=== PATIENT | female | born 1985 | race Caucasian/White ===

== ENCOUNTER 2024-11-04 07:40 | Inpatient (IN) ==
[2024-11-04 10:07] LABS: Hematocrit 36.6 % (35-45); Hemoglobin 12.6 g/dL (11.5-14.3); Mean Corpuscular Hemoglobin 30.2 pg (27-33); Mean Corpuscular Hgb Conc 34.5 g/dL (31-36); Mean Corpuscular Volume 87.6 fL (80-97); Red Blood Count 4.17 10^6/uL (3.63-4.92); Red Cell Distribution Width 13.4 % (12-17); White Blood Count 9.3 10^3/uL (3.8-11.8)
[2024-11-04] MEDS: Terbutaline INJ 1 MG/ML 1 ml VIAL SUBCUT ONE (10:23)
[2024-11-04 10:34] LABS: Urine Benzodiazepine Screen None Detected (None Detect); Urine Opiates Screen None Detected (None Detect)
[2024-11-04 10:43] LABS: Mean Platelet Volume 9.7 fL (7.5-11.2); Platelet Count 235 10^3/uL (150-450)
[2024-11-04] MEDS ORDERED: Lidocaine 1% VIAL 10 MG/ML 30 ML VIAL INJ PRN (10:49)
[2024-11-04 10:59] LABS: Albumin 3.6 g/dL (3.5-5.7); Albumin/Globulin Ratio 1.3 (1-3); Calcium 8.8 mg/dL (8.6-10.3); Creatinine, Serum 0.74 mg/dL (0.51-0.95); Globulin 2.8 g/dL (2-4); Potassium 4.2 mmol/L (3.5-5.0); Total Bilirubin 0.4 mg/dL (0.2-1.0); Total Protein 6.4 g/dL (6.4-8.9); eGFR CKD-EPI 106.1 (>60)
[2024-11-04] MEDS: Buffered Lidocaine 1% SYRIN 1 ml INTRADERM ONE ×2 (11:32)
[2024-11-04] MEDS: Lactated Ringers 1000 ml BAG 1,000 ML IV ONE ×2 (11:33→16:08)
[2024-11-04] MEDS: Penicillin G Potassium IV 5,000,000 UNITS in NS 0.9% 100 ml BAG 100 ML IVPB ONE (11:45)
[2024-11-04] MEDS: Penicillin G Potassium IV 3,000,000 UNITS in NS 0.9% 100 ml BAG 100 ML IVPB SCH (11:54)
[2024-11-04] MEDS: miSOPROStol 100 mcg TAB PO SCH (12:15)
[2024-11-04] MEDS: Oxytocin in NS 30,000 MILLI.UNIT/500 ML BAG IV SCH (16:08)
[2024-11-04] MEDS: Lactated Ringers 1000 ml BAG 1,000 ML IV SCH ×2 (16:08→22:23)
[2024-11-04] MEDS: ceFAZolin 2 GM PREMIX 2 GM/50 ML BAG IV ONE (16:09)
[2024-11-04] MEDS: Sodium Citrate/Citric Acid LIQ 15 ML UDC PO ONE (16:09)
[2024-11-05] MEDS: OBEPIDURAL (200 ML) 200 ML EPIDURAL SCH (14:50)
[2024-11-05] MEDS ORDERED: Phenylephrine 40 mcg/mL 10mL (400mcg) SYRINGE IV PUSH PRN ×2 (15:22)
[2024-11-05] MEDS: fentaNYL 100 mcg/2 ml 50 MCG/ML VIAL ONE (17:02)
[2024-11-05 17:31] LABS: Urine Appearance Clear; Urine Bilirubin Negative (Negative); Urine Blood 2+ (Negative); Urine Color Light-Yellow; Urine Glucose Negative (Negative); Urine Ketones 2+ (Negative); Urine Nitrite Negative (Negative); Urine Protein Negative (Negative); Urine Urobilinogen Negative (Negative)
[2024-11-05 17:41] LABS: Urine Bacteria Absent /HPF (Absent); Urine Red Blood Cell 1+(3-5/hpf) /HPF (0-Trace); Urine White Blood Cell Trace(0-5/hpf) /HPF (0-Trace)
[2024-11-05 17:44] LABS: Urine Benzodiazepine Screen None Detected (None Detect); Urine Cannabinoids Screen None Detected (None Detect); Urine Opiates Screen None Detected (None Detect)
[2024-11-05] MEDS: ceFOXitin 2 GM IVPREMIX 2 GM/50 ML BAG IVPB ONE (19:56)
[2024-11-05] MEDS: Sodium Citrate/Citric Acid LIQ 15 ML UDC PO PRN (19:57)
[2024-11-05] MEDS ORDERED: Phenylephrine IV 10 MG/ML 1 ml VIAL ONE (20:15)
[2024-11-05] MEDS ORDERED: Dexamethasone IV 4 MG/ML VIAL 1 ml VIAL ONE (20:16)
[2024-11-05] MEDS ORDERED: Oxytocin 10 UNITS/ML 1 ML VIAL ONE (20:16)
[2024-11-05] MEDS ORDERED: Lidocaine 2% w/ EPI 1:200,000 MPF 20 ML SDV VIAL ONE (20:16)
[2024-11-05] MEDS: Azithromycin 500 mg/250 ml NS 500 MG/250 ML BAG IVPB ONE (20:16)
[2024-11-05] MEDS ORDERED: Ondansetron 4 mg VIAL 2 MG/ML 2 ml VIAL ONE (20:16)
[2024-11-05] MEDS ORDERED: fentaNYL 100 mcg/2 ml 50 MCG/ML VIAL ONE (20:21)
[2024-11-05] MEDS ORDERED: Chloroprocaine 3% 20 ml VIAL ONE ×2 (20:50→22:03)
[2024-11-05] MEDS ORDERED: Acetaminophen IV 1 GM/100ML 1,000 MG/100 ML BAG IV ONE (21:11)
[2024-11-05] MEDS ORDERED: Morphine PF AMP (0.5MG/ML) 5 MG/10 ML AMP ONE (21:18)
[2024-11-05] MEDS ORDERED: Glycerin ADULT 2.4 gm SUPP PR PRN (22:16)
[2024-11-05] MEDS ORDERED: Acetaminophen IV 1 GM/100ML 1,000 MG/100 ML BAG IV PRN (22:16)
[2024-11-05] MEDS ORDERED: Witch Hazel PAD JAR TOPICAL PRN (22:16)
[2024-11-05] MEDS ORDERED: Dibucaine 1% OINT 28.35 GM TUBE PR PRN (22:16)
[2024-11-05] MEDS ORDERED: Metoclopramide 5 MG/ML VIAL (10 mg) IV PRN (22:16)
[2024-11-05] MEDS ORDERED: Naloxone 0.4 mg VIAL 0.4 mg/ml 1 ml VIAL IV PUSH PRN (22:16)
[2024-11-05] MEDS ORDERED: Ondansetron 4 mg VIAL 2 MG/ML 2 ml VIAL IV PRN (22:16)
[2024-11-05] MEDS ORDERED: Lactated Ringers 1000 ml BAG 1,000 ML IV SCH (23:00)
[2024-11-06] MEDS: Oxytocin in NS 30,000 MILLI.UNIT/500 ML BAG IV SCH (02:29)
[2024-11-06] MEDS: Lidocaine 1.5% EPI 1:200,000 30 ML SDV ONE (02:51)
[2024-11-06] MEDS: OBEPIDURAL (200 ML) 200 ML EPIDURAL ONE (02:53)
[2024-11-06] MEDS: Lactated Ringers 1000 ml BAG 1,000 ML IV ONE (02:54)
[2024-11-06] MEDS: Phenylephrine 40 mcg/mL 10mL (400mcg) SYRINGE ONE (02:54)
[2024-11-06] MEDS: Lactated Ringers 1000 ml BAG 1,000 ML IV SCH (03:00)
[2024-11-06 07:13] LABS: ABS Lymphocytes 1.3 10^3/uL (1.0-4.8); ABS Neutrophils 16.7 10^3/uL (1.5-7.6); Hematocrit 29.7 % (35-45); Hemoglobin 10.3 g/dL (11.5-14.3); Lymphocyte % 6.8 %; Mean Corpuscular Hemoglobin 30.7 pg (27-33); Mean Corpuscular Hgb Conc 34.6 g/dL (31-36); Mean Corpuscular Volume 88.8 fL (80-97); Mean Platelet Volume 9.9 fL (7.5-11.2); Platelet Count 158 10^3/uL (150-450); Red Blood Count 3.34 10^6/uL (3.63-4.92)
[2024-11-08 08:43] VITALS: BP 127/79
== END 2024-11-08 16:00 | disposition home or self-care (01) | DRG 788 ==
LOC: MCHOBOUT 07:40 → MCHOB 08:41
PROVIDERS: ADMIT Obstetrics & Gynecology; ATTEND Obstetrics & Gynecology